=== PATIENT | male | born 1965 | race Two or more races ===

== ENCOUNTER 2017-05-31 22:26 | Emergency (ER) | payer OTHER ==
[~2017-05-31] VITALS: Ht 165.1 cm; Wt 108.9 kg
[2017-05-31 23:47] VITALS: BP 156/94
[2017-06-01 00:18] VITALS: BP 145/90
--- NOTE | 2017-06-01 00:18 | Emergency Room Report ---
History of Present Illness General Chief Complaint: Nosebleed Source: Patient Present Illness HPI 51-year-old male, presenting with right nasal epistaxis, occurred about 20 minutes prior to arrival. States that after he blew his nose which is bleeding. Does not have this happen often. Not any blood thinners. Allergies: Coded Allergies: No Known Allergies (Unverified , 05/31/17) Patient History Past Medical History: see triage record Past Surgical History: none Pertinent Family History: none Reviewed Nursing Documentation: PMH: Agreed, PSxH: Agreed Nursing Documentation-PMH Past Medical History: No Stated History Review of Systems All Other Systems: negative except mentioned in HPI Physical Exam Vital Signs Date Time Temp Pulse Resp B/P (MAP) Pulse Ox O2 Delivery O2 Flow Rate FiO2 05/31/17 22:33 97.6 83 18 156/94 99 Room Air 97.5 Sp02 EP Interpretation: reviewed, normal General Appearance: normal inspection, well appearing, no apparent distress, alert, GCS 15, non-toxic Head: normocephalic, atraumatic Eyes: bilateral eye normal inspection, bilateral eye PERRL, bilateral eye EOMI ENT: other - anterior nasal bleed R nare Neck: normal inspection, full range of motion, supple Respiratory: normal inspection, lungs clear, normal breath sounds, no respiratory distress, no retraction, no wheezing, speaking full sentences, chest symmetrical Cardiovascular #1: normal inspection, regular rate, rhythm, normal capillary refill Cardiovascular #2: 2+ radial (R), 2+ radial (L) Gastrointestinal: normal inspection, non tender, soft, non-distended, no guarding Genitourinary: no CVA tenderness Musculoskeletal: normal inspection, back normal, normal range of motion, non- tender Neurologic: normal inspection, alert, oriented x3, responsive, motor strength/ tone normal, sensory intact, normal gait, speech normal Psychiatric: normal inspection, judgement/insight normal, memory normal Skin: normal inspection, normal color, no rash, warm/dry, well hydrated, normal turgor Medical Decision Making Diagnostic Impression: Primary Impression: Epistaxis ER Course 51-year-old male with right nasal epistaxis DDX: Right anterior epistaxis Plan: Nasal clamp ER course: Patient has remained stable during ED stay. Nasal clamp was placed for about 10 minutes, when taken off there was no further bleeding Disposition: Patient is to be discharged to home. Told to followup with his doctor or ENT Please note that this Emergency Department Report was dictated using [employer] music director technology software, occasionally this can lead to erroneous entry secondary to interpretation by the dictation equipment Last Vital Signs Date Time Temp Pulse Resp B/P (MAP) Pulse Ox O2 Delivery O2 Flow Rate FiO2 05/31/17 23:47 97.5 85 18 156/94 99 Room Air 97.5 Disposition: HOME, SELF-CARE Condition: Improved Referrals: NOT CHOSEN IPA/,REFERRING (PCP) Patient Instructions: Howie Rizv-af-Onbo Doroteo Becerra M.D. Jun 01, 2017 00:18
== END 2017-06-01 00:20 | disposition home or self-care (01) ==
LOC: EMR 22:53
DX: R04.0 Epistaxis (principal)
CPT/HCPCS: 99283

== ENCOUNTER 2017-09-22 19:03 | Inpatient (IN) | payer OTHER ==
[~2017-09-22] VITALS: Ht 165.1 cm; Wt 119.0 kg
[2017-09-22] MEDS ORDERED: Sodium Chloride 500ML 500 ML IV ONE (21:11)
[2017-09-22] MEDS ORDERED: Isovue-300 100ml vial INJ PRN (21:15)
[2017-09-22] MEDS ORDERED: Morphine Sulfate 4mg/ml Inj IVP ONE (21:15)
[2017-09-22] MEDS ORDERED: Ketorolac 30mg Inj IV ONE (21:15)
[2017-09-22] MEDS ORDERED: Ketorolac 30mg Inj ONE (21:50)
[2017-09-22] MEDS ORDERED: Morphine Sulfate 4mg/ml Inj ONE (21:50)
[2017-09-22 21:58] VITALS: BP 105/65
[2017-09-22 22:04] LABS: HEMATOCRIT 46.1 % (42.0-52.0); HEMOGLOBIN 15.4 G/DL (14.2-18.0); MEAN CORPUSCULAR VOLUME 83 FL (80-99); PLATELET COUNT 167 K/UL (150-450); RED BLOOD COUNT 5.55 M/UL (4.70-6.10); RED CELL DISTRIBUTION WIDTH 11.8 % (11.6-14.8); WHITE BLOOD COUNT 13.1 K/UL (4.8-10.8)
[2017-09-22 22:17] LABS: APPEARANCE,URINE CLEAR; BILIRUBIN, URINE NEGATIVE (NEGATIVE); GLUCOSE, URINE (UA) 2+ (NEGATIVE); KETONES,URINE NEGATIVE (NEGATIVE); LEUKOCYTE ESTERASE ,URINE NEGATIVE (NEGATIVE); NITRITE,URINE NEGATIVE (NEGATIVE); PH,URINE 6 (4.5-8.0); PROTEIN,URINE 1+ (NEGATIVE); UROBILINOGEN,URINE NORMAL MG/DL (0.0-1.0)
[2017-09-22 22:22] LABS: ANION GAP 9 mmol/L (5-15); BLOOD UREA NITROGEN 12 mg/dL (7-18); CALCIUM 9.2 MG/DL (8.5-10.1); CARBON DIOXIDE 27 MMOL/L (21-32); CHLORIDE 101 MMOL/L (98-107); CREATININE 1.2 MG/DL (0.55-1.30); POTASSIUM 3.8 MMOL/L (3.5-5.1); SODIUM 137 MMOL/L (136-145)
[2017-09-22 22:26] LABS: ALANINE AMINOTRANSFERASE 43 U/L (12-78); ALBUMIN 3.9 G/DL (3.4-5.0); ALBUMIN/GLOBULIN RATIO 0.9 (1.0-2.7); ALKALINE PHOSPHATASE 80 U/L (46-116); ASPARTATE AMINO TRANSFERASE 17 U/L (15-37); BILIRUBIN,TOTAL 0.7 MG/DL (0.2-1.0)
[2017-09-22 22:41] LABS: COLOR,URINE YELLOW
--- NOTE | 2017-09-22 22:59 | Emergency Room Report ---
History of Present Illness General Chief Complaint: Abdominal Pain Source: Patient Present Illness HPI 51-year-old male presents ED complaining of abdominal pain. Started yesterday. Right sided, 8 out of 10, nonradiating. Denies fevers or chills. Denies chest pain or shortness of breath. Denies nausea or vomiting. Denies any prior episodes of pain. No other aggravating relieving factors. Denies any other associated symptoms Allergies: Coded Allergies: No Known Allergies (Unverified , 05/31/17) Patient History Past Medical History: none Past Surgical History: none Pertinent Family History: none Social History: Denies: smoking, alcohol use, drug use Immunizations: UTD Reviewed Nursing Documentation: PMH: Agreed; PSxH: Agreed Nursing Documentation-PMH Past Medical History: No Stated History Review of Systems All Other Systems: negative except mentioned in HPI Physical Exam Vital Signs Date Time Temp Pulse Resp B/P (MAP) Pulse Ox O2 Delivery O2 Flow Rate FiO2 09/22/17 19:08 98.4 75 22 132/83 95 Room Air 98.4 Sp02 EP Interpretation: reviewed, normal General Appearance: no apparent distress, alert, GCS 15, non-toxic, obese Head: normocephalic Eyes: bilateral eye normal inspection, bilateral eye PERRL ENT: normal ENT inspection Neck: normal inspection Respiratory: normal inspection Cardiovascular #1: normal inspection Gastrointestinal: normal bowel sounds, soft, non-distended, no guarding, no rebound, tenderness - R mid to RLQ pain Rectal: deferred Genitourinary: no CVA tenderness Musculoskeletal: normal inspection Neurologic: alert, oriented x3, responsive, motor strength/tone normal, sensory intact, speech normal Psychiatric: normal inspection Skin: normal inspection Lymphatic: normal inspection Medical Decision Making Diagnostic Impression: Primary Impression: Appendicitis with perforation ER Course Hospital Course 51-year-old M presents to ED with RLQ pain Differential diagnoses include: Appendicitis, cholecystitis, small bowel obstruction Clinical course Patient placed on stretcher. hall monitor. After initial history and physical I ordered labs, IV fluids, UA, pain medication and CT scan Labs - leukocytosis noted, Hb/Hct stable. electrolytes ok. CT abdomen and pelvis - appendicits with perforation Antibiotics given. made NPO. Case discussed with Dr. Weston and he agreed to take the patient to the OR. Case discussed with Dr. Weaver and he agreed to accept the patient to his service for further care and support I feel this is a highly complex case requiring extensive working including EKG/ Rhythm strip, Xray/CT/US, Blood/urine lab work, repeat exams while in ED, and administration of strong opiates/narcotics for pain control, admission to hospital or close patient follow up. Diagnosis - appendicitis with perforation admitted to floor in serious condition Labs Test 09/22/17 21:30 White Blood Count 13.1 K/UL (4.8-10.8) Red Blood Count 5.55 M/UL (4.70-6.10) Hemoglobin 15.4 G/DL (14.2-18.0) Hematocrit 46.1 % (42.0-52.0) Mean Corpuscular Volume 83 FL (80-99) Mean Corpuscular Hemoglobin 27.8 PG (27.0-31.0) Mean Corpuscular Hemoglobin Concent 33.5 G/DL (32.0-36.0) Red Cell Distribution Width 11.8 % (11.6-14.8) Platelet Count 167 K/UL (150-450) Mean Platelet Volume 10.6 FL (6.5-10.1) Neutrophils (%) (Auto) % (45.0-75.0) Lymphocytes (%) (Auto) % (20.0-45.0) Monocytes (%) (Auto) % (1.0-10.0) Eosinophils (%) (Auto) % (0.0-3.0) Basophils (%) (Auto) % (0.0-2.0) Differential Total Cells Counted 100 Neutrophils % (Manual) 86 % (45-75) Lymphocytes % (Manual) 9 % (20-45) Monocytes % (Manual) 5 % (1-10) Eosinophils % (Manual) 0 % (0-3) Basophils % (Manual) 0 % (0-2) Band Neutrophils 0 % (0-8) Platelet Estimate Adequate Platelet Morphology Normal Red Blood Cell Morphology Normal Prothrombin Time 9.7 SEC (9.30-11.50) Prothromb Time International Ratio 0.9 (0.9-1.1) Activated Partial Thromboplast Time 26 SEC (23-33) Urine Color Yellow Urine Appearance Clear Urine pH 6 (4.5-8.0) Urine Specific [place] 1.020 (1.005-1.035) Urine Protein 1+ (NEGATIVE) Urine Glucose (UA) 2+ (NEGATIVE) Urine Ketones Negative (NEGATIVE) Urine Occult Blood 1+ (NEGATIVE) Urine Nitrite Negative (NEGATIVE) Urine Bilirubin Negative (NEGATIVE) Urine Urobilinogen Normal MG/DL (0.0-1.0) Urine Leukocyte Esterase Negative (NEGATIVE) Urine RBC 2-4 /HPF (0 - 0) Urine WBC 0-2 /HPF (0 - 0) Urine Squamous Epithelial Cells None /LPF (NONE/OCC) Urine Bacteria Few /HPF (NONE) Sodium Level 137 MMOL/L (136-145) Potassium Level 3.8 MMOL/L (3.5-5.1) Chloride Level 101 MMOL/L (98-107) Carbon Dioxide Level 27 MMOL/L (21-32) Anion Gap 9 mmol/L (5-15) Blood Urea Nitrogen 12 mg/dL (7-18) Creatinine 1.2 MG/DL (0.55-1.30) Estimat Glomerular Filtration Rate > 60 mL/min (>60) Glucose Level 163 MG/DL (74-106) Calcium Level 9.2 MG/DL (8.5-10.1) Total Bilirubin 0.7 MG/DL (0.2-1.0) Aspartate Amino Transf (AST/SGOT) 17 U/L (15-37) Alanine Aminotransferase (ALT/SGPT) 43 U/L (12-78) Alkaline Phosphatase 80 U/L (46-116) Total Protein 8.1 G/DL (6.4-8.2) Albumin 3.9 G/DL (3.4-5.0) Globulin 4.2 g/dL Albumin/Globulin Ratio 0.9 (1.0-2.7) Lipase 92 U/L (73-393) CT/MRI/US Diagnostic Results CT/MRI/US Diagnostic Results : Imaging Test Ordered: CT A/P Impression appendicitis with perforation Last Vital Signs Date Time Temp Pulse Resp B/P (MAP) Pulse Ox O2 Delivery O2 Flow Rate FiO2 09/22/17 22:22 98.4 09/22/17 21:58 78 18 105/65 96 Room Air Status: improved Disposition: ADMITTED INPATIENT Condition: Serious Scripts No Active Prescriptions or Reported Meds Referrals: NOT CHOSEN IPA/,REFERRING (PCP) Gilson Pepper MD Sep 22, 2017 22:59
[2017-09-23] VITALS (13 sets, daily range): BP systolic 101–144; BP diastolic 59–83
[2017-09-23] MEDS ORDERED: Morphine Sulfate 4mg/ml Inj IVP ONE
--- NOTE | 2017-09-23 00:54 | Diagnostic Imaging Report ---
EXAM: CT Abdomen and Pelvis With Intravenous Contrast CLINICAL HISTORY: ABD PAIN TECHNIQUE: Axial computed tomography images of the abdomen and pelvis with intravenous contrast. CTDI is 19 mGy and DLP is 1193 mGy-cm. One or more of the following dose reduction techniques were used: automated exposure control, adjustment of the mA and/or kV according to patient size, use of iterative reconstruction technique. COMPARISON: No relevant prior studies available. FINDINGS: Lung bases: Bibasilar subsegmental atelectasis. No mass. No consolidation. ABDOMEN: Liver: Unremarkable. No mass. Gallbladder and bile ducts: Unremarkable. No calcified stones. No ductal dilation. Pancreas: Unremarkable. No mass. No ductal dilation. Spleen: Unremarkable. No splenomegaly. Adrenals: Unremarkable. No mass. Kidneys and ureters: Fat density lesion in the right kidney measuring 1.0 x 0.9 cm consistent with benign angiomyolipoma. No hydronephrosis. Stomach and bowel: There is diverticulosis of the colon. No obstruction. No mucosal thickening. PELVIS: Appendix: The appendix is abnormally dilated and inflamed measuring up to 1.2 cm diameter. A small focus of extraluminal air is seen adjacent apex consistent with perforated appendicitis. Bladder: Unremarkable. No mass. Reproductive: Unremarkable as visualized. ABDOMEN and PELVIS: Intraperitoneal space: See above. Bones/joints: There are degenerative changes of the thoracic spine and lumbar spine. No acute fracture. No dislocation. Soft tissues: There are small fat-containing bilateral inguinal hernia defects. Vasculature: Unremarkable. No abdominal aortic aneurysm. Lymph nodes: Unremarkable. No enlarged lymph nodes. Other findings: No abscess identified. IMPRESSION: 1. Findings consistent with perforated appendicitis. 2. No abscess. [employer] 09/23/17 00:55 Call Doctor Regarding Appendicitis, called Dr. Pepper on 09/23 00:55 (-07:00)
[2017-09-23] MEDS ORDERED: Piperacillin/Tazobactam 3.375 GM in NS 110 ML IVPB ONE (01:00)
[2017-09-23 01:33] LABS: INR 0.9 (0.9-1.1)
[2017-09-23] MEDS: Morphine Sulfate 2mg/ml Inj IVP PRN ×2 (03:14→08:23)
[2017-09-23 04:48] LABS: MEAN CORPUSCULAR VOLUME 82 FL (80-99); PLATELET COUNT 147 K/UL (150-450); RED BLOOD COUNT 5.34 M/UL (4.70-6.10); RED CELL DISTRIBUTION WIDTH 11.7 % (11.6-14.8); WHITE BLOOD COUNT 13.1 K/UL (4.8-10.8)
[2017-09-23] MEDS ORDERED: Zosyn 3.375gm q8h **Extended infusion IVPB SCH ×2 (06:00)
[2017-09-23 06:20] LABS: ALANINE AMINOTRANSFERASE 35 U/L (12-78); ALBUMIN 3.6 G/DL (3.4-5.0); ALBUMIN/GLOBULIN RATIO 0.9 (1.0-2.7); ALKALINE PHOSPHATASE 77 U/L (46-116); ANION GAP 12 mmol/L (5-15); ASPARTATE AMINO TRANSFERASE 19 U/L (15-37); BILIRUBIN,TOTAL 1.1 MG/DL (0.2-1.0); BLOOD UREA NITROGEN 15 mg/dL (7-18); CALCIUM 8.4 MG/DL (8.5-10.1); CARBON DIOXIDE 24 MMOL/L (21-32); CHLORIDE 101 MMOL/L (98-107); CREATININE 1.2 MG/DL (0.55-1.30); POTASSIUM 3.5 MMOL/L (3.5-5.1); SODIUM 136 MMOL/L (136-145)
[2017-09-23 06:56] LABS: BILIRUBIN,DIRECT 0.2 MG/DL (0.0-0.3)
[2017-09-23] MEDS ORDERED: Tubing IV Secondary IV ONE (08:58)
[2017-09-23] MEDS ORDERED: NeoSporin Gu Irrig 1ml Amp IRRIG ONE (09:21)
[2017-09-23] MEDS ORDERED: Bupivacaine 0.25% Inj 30ml INJ ONE (09:21)
[2017-09-23] MEDS ORDERED: Bacitracin 50000 Units Vial ONE (09:21)
--- NOTE | 2017-09-23 09:47 | Pre-Procedure Note/Attestation ---
Pre-Procedure Note/Attestation Complete Prior to Procedure Planned Procedure: not applicable Procedure Narrative: Laparoscopic Appendectomy possible open Appendectomy Indications for Procedure Pre-Operative Diagnosis: Acute abdomen Attestation I attest that I discussed the nature of the procedure; its benefits; risks and complications; and alternatives (and the risks and benefits of such alternatives ), prior to the procedure, with the patient (or the patient's legal sales representative girls' apparel). I attest that, if there was a reasonable possibility of needing a blood transfusion, the patient (or the patient's legal sales representative girls' apparel) was given the [facility] standardized written summary, pursuant to the [place] Blood Safety Act ([place] Health and Safety Code # 1645, as amended). I attest that I re-evaluated the patient just prior to the surgery and that there has been no change in the patient's H&P, except as documented below: Harleen Weston MD Sep 23, 2017 09:47
--- NOTE | 2017-09-23 10:00 | Consultation ---
DATE OF CONSULTATION: 09/23/2017 PREOPERATIVE CONSULTATION CONSULTING PHYSICIAN: Harleen Weston M.D. REQUESTING PHYSICIAN: The ER physician. REASON FOR CONSULTATION: Abdominal pain. HISTORY OF PRESENT ILLNESS: This is a 51-year-old male, who presented to emergency room complaining of abdominal pain since the night before last, which was night of the September 21, 2017. The pain is located at the right lower quadrant. He denies nausea, vomiting, cough, fever, dysuria, or frequency. He denies previous history of similar pain. PAST MEDICAL HISTORY: He denies allergies, asthma, diabetes, hypertension, cardiac and renal diseases. PAST SURGICAL HISTORY: He has had some kind of podiatric surgery on the right foot. MEDICATIONS: None. 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 REVIEW OF SYSTEMS: Noncontributory. PHYSICAL EXAMINATION: GENERAL: The patient appeared to be a well-developed, well-nourished, obese 51-year-old male, lying on the bed, complaining of abdominal pain. HEENT: Head is normocephalic and atraumatic. Eyes, pupils are equal, round, and reactive to light. Mouth is clear. NECK: There is no palpable thyromegaly or adenopathy. CHEST: Clear to auscultation and percussion. HEART: There is no gallop or murmur. S1 and S2 are within normal limits. ABDOMEN: Obese and protuberant with tenderness, rebound tenderness, and guarding all over the abdomen, which is more pronounced at the lower abdomen. Bowel sounds are hypoactive. GENITAL: Deferred. EXTREMITIES: Within normal limits. LABORATORY AND DIAGNOSTIC DATA: CBC has shown a WBC of 13,100 with a left shift. Chemistry and UA is normal. CAT scan of the abdomen has been interpreted as acute appendicitis, probably perforated. ASSESSMENT: Acute abdomen. PLAN: After rehydration, the patient will undergo an exploratory laparoscopic appendectomy, possible open appendectomy. The risks and benefits have been explained to him. He understood and granted the consent form. Harleen Weston M.D. DR: ABIMAEL JOB#: [id number] CC:
--- NOTE | 2017-09-23 10:11 | History & Physical ---
History and Physical History & Physicial DICT # [id number] Fly Weaver MD Sep 23, 2017 10:11
[2017-09-23] MEDS ORDERED: Zemuron 50mg/5ml Inj IV ONE ×2 (10:49→11:00)
[2017-09-23] MEDS ORDERED: LR 1000ml ONE (11:00)
[2017-09-23] MEDS ORDERED: Succinylcholine 20mg/ml 10ml vial ONE (11:00)
[2017-09-23] MEDS ORDERED: NS Irrig 1000ml ONE (11:00)
[2017-09-23] MEDS ORDERED: Sterile Water Irrig 1000ml IRRIG ONE (11:00)
[2017-09-23] MEDS ORDERED: Glycopyrrolate 0.2mg/ml 1ml Vial ONE ×2 (11:00→12:29)
[2017-09-23] MEDS ORDERED: fentaNYL 100 mcg/2 mL IV ONE (11:03)
[2017-09-23] MEDS ORDERED: Lidocaine 1% Plain 30 ml INJ ONE (11:06)
[2017-09-23] MEDS ORDERED: Propofol 200mg/20ml IV ONE (11:06)
[2017-09-23] MEDS ORDERED: Metoclopramide 10mg/2ml Inj ONE (11:06)
[2017-09-23] MEDS ORDERED: ePHEDrine 50mg/ml Inj ONE (11:19)
[2017-09-23] MEDS ORDERED: NS Irrig 1000ml IRRIG ONE (11:36)
--- NOTE | 2017-09-23 11:57 | Anethesia Preoperative Eval ---
Anesthesia Pre-op PMH/ROS General Date of Evaluation: Sep 23, 2017 Time of Evaluation: 10:40 Anesthesiologist: camila ASA Score: ASA 2 Mallampati Score Class I : Soft palate, uvula, fauces, pillars visible Class II: Soft palate, uvula, fauces visible Class III: Soft palate, base of uvula visible Class IV: Only hard plate visible Mallampati Classification: Class II Diagnosis: appendicitis Surgical Procedure: Appendetomy open Anesthesia History: none Social History: drug use Family History: no anesthesia problems Allergies: Coded Allergies: No Known Allergies (Unverified , 05/31/17) Medications: see eMAR Past Medical History Cardiovascular: Denies: HTN, CAD, IA, valve dz, arrhythmia, other Pulmonary: Denies: asthma, COPD, SARA, other Gastrointestinal/Genitourinary: Denies: GERD, CRI, ESRD, other Neurologic/Psychiatric: Denies: dementia, CVA, depression/anxiety, TIA, other Endocrine: Denies: DM, hypothyroidism, steroids, other HEENT: Denies: cataract (L), cataract (R), glaucoma, [place] (L), [place] (R), other Hematology/Immune: Denies: anemia, DVT, bleeding disorder, other Musculoskeletal/Integumentary: Denies: OA, RA, DJD, DDD, edema, other Other: obesity PSxH Narrative: denies Anesthesia Pre-op Phys. Exam Physician Exam Last Vital Signs Date Time Temp Pulse Resp B/P (MAP) Pulse Ox O2 Delivery O2 Flow Rate FiO2 09/23/17 08:53 99.3 09/23/17 08:00 90 20 144/70 94 Room Air Constitutional: NAD Neurologic: CN 2-12 intact Cardiovascular: RRR Respiratory: CTA Gastrointestinal: S/NT/ND Airway Exam Mallampati Classification 3 Mallampati Score: Class III MO: limited Neck: thick TMD: 1fb ROM: limited Dentures: no upper, no lower Anesthesia Pre-op A/P Labs Hematology Test 09/22/17 21:30 09/23/17 03:42 White Blood Count 13.1 K/UL (4.8-10.8) H 13.1 K/UL (4.8-10.8) H Red Blood Count 5.55 M/UL (4.70-6.10) 5.34 M/UL (4.70-6.10) Hemoglobin 15.4 G/DL (14.2-18.0) 15.0 G/DL (14.2-18.0) Hematocrit 46.1 % (42.0-52.0) 44.0 % (42.0-52.0) Mean Corpuscular Volume 83 FL (80-99) 82 FL (80-99) Mean Corpuscular Hemoglobin 27.8 PG (27.0-31.0) 28.1 PG (27.0-31.0) Mean Corpuscular Hemoglobin Concent 33.5 G/DL (32.0-36.0) 34.1 G/DL (32.0-36.0) Red Cell Distribution Width 11.8 % (11.6-14.8) 11.7 % (11.6-14.8) Platelet Count 167 K/UL (150-450) 147 K/UL (150-450) L Mean Platelet Volume 10.6 FL (6.5-10.1) H 10.1 FL (6.5-10.1) Neutrophils (%) (Auto) % (45.0-75.0) % (45.0-75.0) Lymphocytes (%) (Auto) % (20.0-45.0) % (20.0-45.0) Monocytes (%) (Auto) % (1.0-10.0) % (1.0-10.0) Eosinophils (%) (Auto) % (0.0-3.0) % (0.0-3.0) Basophils (%) (Auto) % (0.0-2.0) % (0.0-2.0) Differential Total Cells Counted 100 Neutrophils % (Manual) 86 % (45-75) H Pending Lymphocytes % (Manual) 9 % (20-45) L Pending Monocytes % (Manual) 5 % (1-10) Eosinophils % (Manual) 0 % (0-3) Basophils % (Manual) 0 % (0-2) Band Neutrophils 0 % (0-8) Platelet Estimate Adequate Pending Platelet Morphology Normal Pending Red Blood Cell Morphology Normal Coagulation Test 09/22/17 21:30 Prothrombin Time 9.7 SEC (9.30-11.50) Prothromb Time International Ratio 0.9 (0.9-1.1) Activated Partial Thromboplast Time 26 SEC (23-33) Chemistry Test 09/22/17 21:30 09/23/17 03:42 Sodium Level 137 MMOL/L (136-145) 136 MMOL/L (136-145) Potassium Level 3.8 MMOL/L (3.5-5.1) 3.5 MMOL/L (3.5-5.1) Chloride Level 101 MMOL/L (98-107) 101 MMOL/L (98-107) Carbon Dioxide Level 27 MMOL/L (21-32) 24 MMOL/L (21-32) Anion Gap 9 mmol/L (5-15) 12 mmol/L (5-15) Blood Urea Nitrogen 12 mg/dL (7-18) 15 mg/dL (7-18) Creatinine 1.2 MG/DL (0.55-1.30) 1.2 MG/DL (0.55-1.30) Estimat Glomerular Filtration Rate > 60 mL/min (>60) > 60 mL/min (>60) Glucose Level 163 MG/DL (74-106) H 149 MG/DL (74-106) H Calcium Level 9.2 MG/DL (8.5-10.1) 8.4 MG/DL (8.5-10.1) L Total Bilirubin 0.7 MG/DL (0.2-1.0) 1.1 MG/DL (0.2-1.0) H Aspartate Amino Transf (AST/SGOT) 17 U/L (15-37) 19 U/L (15-37) Alanine Aminotransferase (ALT/SGPT) 43 U/L (12-78) 35 U/L (12-78) Alkaline Phosphatase 80 U/L (46-116) 77 U/L (46-116) Total Protein 8.1 G/DL (6.4-8.2) 7.6 G/DL (6.4-8.2) Albumin 3.9 G/DL (3.4-5.0) 3.6 G/DL (3.4-5.0) Globulin 4.2 g/dL 4.0 g/dL Albumin/Globulin Ratio 0.9 (1.0-2.7) L 0.9 (1.0-2.7) L Lipase 92 U/L (73-393) Hemoglobin A1c 6.2 % (4.3-6.0) H Direct Bilirubin 0.2 MG/DL (0.0-0.3) Studies Pre-op Studies: EKG - sr Risk Assessment & Plan Assessment: denies recent changes in health Plan: general Status Change Before Surgery: No Pre-Antibiotics Drug: zosyn Given Within 1 Hr of Incision: Yes Time Given: 10:40 Shazia Yang PHYSICAL TESTING SUPERVISOR Sep 23, 2017 11:57
[2017-09-23] MEDS ORDERED: Metoclopramide 10mg/2ml Inj IVP PRN (12:00)
[2017-09-23] MEDS ORDERED: Ketorolac 30mg Inj IV PRN (12:00)
[2017-09-23] MEDS ORDERED: fentaNYL 100 mcg/2 mL IV PRN (12:00)
[2017-09-23] MEDS ORDERED: Ketorolac 30mg Inj ONE (12:29)
[2017-09-23] MEDS ORDERED: Neostigmine 1mg/ml 10ml Inj ONE (12:29)
--- NOTE | 2017-09-23 12:37 | Brief Operative Note ---
Immediate Post Operative Note Operative Note Pre-op Diagnosis: Acute abdomen Procedure: attempted Lap Appy , open appendectomy Post-op Diagnosis: perforated appendicitis with peritonitis Surgeon: MD Arnaldo Shuttle Fitting Supervisor: none Anesthesiologist: Dr. Yang Anesthesia: general Specimen: yes Complications: none Condition: stable Fluids: per anesthesiologist Estimated Blood Loss: volume - 20 ml Drains: none Implant(s) used?: No Harleen Weston MD Sep 23, 2017 12:37
[2017-09-23] MEDS ORDERED: Acetaminophen 650 MG SUPP RECTAL PRN (12:45)
[2017-09-23] MEDS ORDERED: Gentamicin Rx monitoring MISC PRN (12:45)
--- NOTE | 2017-09-23 12:56 | Immediate Post-Op Evaluation ---
Immediate Post-Op Evalulation Immediate Post-Op Evalulation Procedure: appendectomy open Date of Evaluation: Sep 23, 2017 Time of Evaluation: 12:46 IV Fluids: 1300 Blood Pressure Systolic: 134 Blood Pressure Diastolic: 70 Pulse Rate: 96 Respiratory Rate: 14 O2 Sat by Pulse Oximetry: 100 Temperature (Fahrenheit): 99.4 Nausea: No Vomiting: No Complications none Patient Status: awake, reacts, patent Hydration Status: adequate Drug: zosyn Given Within 1 Hr of Incision: Yes Time Given: 10:40 Shazia Yang CRNA Sep 23, 2017 12:56
--- NOTE | 2017-09-23 15:30 | History and Physical Report ---
DATE OF ADMISSION: 09/23/2017 REASON FOR ADMISSION: Abdominal pain. HISTORY OF PRESENT ILLNESS: The patient is a 51-year-old obese male without any significant past medical history, who presented to the ER with acute right lower quadrant pain x1 night. No nausea or vomiting. No fever or chills. No headache or dizziness. He is unable to eat secondary to food aversion. No diarrhea or constipation. CT in the ER showed acute perforated appendicitis. The patient has been admitted for definitive management. PAST MEDICAL HISTORY: None. PAST SURGICAL HISTORY: None. ALLERGIES: No known drug allergies. MEDICATIONS: Prior to admission, medications none. SOCIAL HISTORY: He is with two children. 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 No tobacco, alcohol, or drug use. FAMILY HISTORY: Noncontributory. REVIEW OF SYSTEMS: Negative other than history of present illness. PHYSICAL EXAMINATION: VITAL SIGNS: Temperature 100.1, pulse 95, blood pressure 127/75, and saturating 100% on room air. GENERAL: He is a well-developed, well-nourished male, in no acute distress. Awake, alert, and oriented x3. HEENT: Normocephalic and atraumatic. Oropharynx is clear with moist mucous membranes. NECK: Supple without lymphadenopathy or JVD. CHEST: Clear. ABDOMEN: Diffuse tenderness with rebound. Hypoactive bowel sounds. EXTREMITIES: No cyanosis, clubbing, or edema. ANCILLARY DATA: White count 13.1, hemoglobin 15, and platelet count 147. INR 0.9. Sodium 137, potassium 3.8, chloride 101, bicarb 27, BUN 12, creatinine 1.2, glucose 163, and calcium 9.2. Total bilirubin 0.7. 17, 43, and alkaline phosphatase 80. Total protein 8. Albumin 3.9. Globulin 4.2. Urinalysis 1+ protein, 2+ glucose, 1+ blood. Imaging, CT of the abdomen and pelvis done in the emergency department shows perforated appendicitis. ASSESSMENT: The patient is a 51-year-old male with a history of obesity, presenting with acute right lower quadrant pain and an acute abdomen secondary to acute perforated appendicitis. He has been admitted for IV fluids, antibiotics, pain control, and is being taken to the OR this morning for laparoscopic appendectomy. 1. Acute perforated appendicitis. 2. Acute abdomen secondary to above. 3. Obesity. 4. Likely sleep apnea. 5. Elevated blood sugar, possibly diabetes. TREATMENT PLAN: 1. The patient is on-call to the OR for laparoscopic appendectomy. 2. Supportive care. 3. Incentive spirometry. 4. IV fluids. 5. Broad-spectrum antibiotics. 6. We will advance diet postop per surgical recommendations. 7. We will follow surgery postop recommendations. 8. DVT prophylaxis. 9. The patient is Full Code. Fly Weaver M.D. DR: REAL JOB#: [id number] CC:
[2017-09-23] MEDS: D5 1/2NS w/KCl 20mEq 1,000 ML IV SCH ×2 (15:31→23:30)
[2017-09-23] MEDS ORDERED: NS IVPB SCH ×2 (18:00)
[2017-09-23] MEDS ORDERED: GENTAMICIN IVPB SCH ×2 (18:00)
--- NOTE | 2017-09-23 18:45 | Operative Note - Dictated ---
DATE OF OPERATION: 09/23/2017 PREOPERATIVE DIAGNOSIS: Acute abdomen. POSTOPERATIVE DIAGNOSIS: Acute perforated appendicitis with peritonitis. OPERATION: 1. Attempted laparoscopic appendectomy. 2. Open appendectomy. COMPLICATIONS: None. SURGEON: Harleen Weston M.D. VISUAL C DEVELOPER: None. ANESTHESIA: General with endotracheal tube. ANESTHESIOLOGIST: Shazia Yang. INDICATION: This is a 51-year-old, male, who presented to emergency room complaining of abdominal pain since 09/21/2017. He states that the pain was located at right lower quadrant. No nausea or vomiting. Physical examination showed tenderness, rebound tenderness, and guarding all over the abdomen, which was more pronounced at the lower abdomen. The CBC showed a WBC of 13,700 with a left shift. CAT scan of the abdomen was interpreted as perforated appendicitis. DESCRIPTION OF PROCEDURE: The patient was placed supine on the operating table and after general anesthesia with endotracheal tube, the abdomen was properly prepped and draped. Initially, a small incision was given above the umbilicus, through which a Veress needle was introduced into the intraperitoneal cavity. This cavity was insufflated up to 17 mmHg and then the Veress needle was removed and a 5 mm trocar was placed in the intraperitoneal cavity through the incision above the umbilicus. Laparoscope and camera were introduced into the intraperitoneal cavity through the trocar above the umbilicus, and under direct vision, a 5 mm trocar was placed at the suprapubic area and a 12 mm trocar was placed at the left lower quadrant of the abdomen. Initially, a rapid exploration was performed, which was very difficult. It should be noted that the patient is very obese and he had large amount of fat in the abdomen and space was not clear considerable amount, but anyway we managed to perform the exploration. The diaphragms were normal. The part of the stomach that could be seen was normal. Liver showed fatty infiltrate. The bowels were covered with omentum. The patient had brownish fluid in the lower abdomen, especially in the pelvis and the right lower quadrant. This fluid was aspirated. Exploration of the right lower quadrant cavity was performed. It was noticed that the patient had extensive inflammatory changes in this area. During the dissection, a tissue was identified, which seemed to be inflamed appendix. While we were trying to dissect, this part avulsed. So, it was removed from the intraperitoneal cavity through the incision on the left lower quadrant. Further exploration was performed. I felt like we could see the appendix, but it was too much inflammatory reaction and beside I was not sure, further dissection could have been very dangerous. So, the decision was made to perform open appendectomy. The trocars were removed. A transverse incision was given in the right lower quadrant of the abdomen and it was carried sharply through the large amount of fat. The fascia and the muscles were split. The intraperitoneal cavity was entered. This incision was later extended laterally. Finally, the cecum was identified. Exploration of the area was performed and the appendix was identified and gradually then dissected and isolated. The mesoappendix was not clear. It seemed that it was removed during the laparoscopy, but anyway, the appendix was identified. The proximal part was normal and the distal part was severely inflamed and amputated. A TA 30 was applied at the base and the appendix was removed. After that, the intraperitoneal cavity was thoroughly irrigated with antibiotic solution. Another exploration was performed. There was no bleeding or complication. The incision was approximated with running 0 Vicryl for posterior fascia and peritoneum, few interrupted sutures of 0 Vicryl for the muscle, and then running 0 Vicryl for the fascia. The incision was then irrigated with antibiotic solution and Betadine, and the subcutaneous tissue was approximated with 4-0 chromic and the skin incisions were approximated with multiple skin nitza. The patient tolerated the procedure very well and was transferred to recovery room in stable condition and extubated. The sponge and needle count correct. Estimated blood loss 20 mL. Condition of the patient at the end of procedure was stable. Harleen Weston M.D. DR: LUCIANO JOB#: [id number] CC:
[2017-09-23] MEDS: Piperacillin/Tazobactam 4.5 GM in NS 110 ML IVPB SCH (20:27)
[2017-09-23] MEDS: Morphine Sulfate 4mg/ml Inj IVP PRN (20:28)
[2017-09-23] MEDS: Metoclopramide 10mg/2ml Inj IM SCH (21:24)
[2017-09-24] VITALS: BP 99/63
[2017-09-24] MEDS: D5 1/2NS w/KCl 20mEq 1,000 ML IV SCH ×2 (02:07→15:20)
[2017-09-24] MEDS: Morphine Sulfate 4mg/ml Inj IVP PRN ×3 (02:08→15:20)
[2017-09-24 04:00] VITALS: BP 92/68
[2017-09-24] MEDS: Piperacillin/Tazobactam 4.5 GM in NS 110 ML IVPB SCH (04:31)
[2017-09-24 06:30] LABS: HEMATOCRIT 37.9 % (42.0-52.0); HEMOGLOBIN 12.6 G/DL (14.2-18.0); MEAN CORPUSCULAR VOLUME 84 FL (80-99); PLATELET COUNT 109 K/UL (150-450); RED BLOOD COUNT 4.52 M/UL (4.70-6.10); RED CELL DISTRIBUTION WIDTH 11.9 % (11.6-14.8); WHITE BLOOD COUNT 11.5 K/UL (4.8-10.8)
[2017-09-24] MEDS: Metoclopramide 10mg/2ml Inj IM SCH ×3 (06:31→22:00)
[2017-09-24 06:38] LABS: ANION GAP 6 mmol/L (5-15); BLOOD UREA NITROGEN 19 mg/dL (7-18); CALCIUM 7.9 MG/DL (8.5-10.1); CARBON DIOXIDE 29 MMOL/L (21-32); CHLORIDE 104 MMOL/L (98-107); CREATININE 1.3 MG/DL (0.55-1.30); POTASSIUM 3.8 MMOL/L (3.5-5.1); SODIUM 139 MMOL/L (136-145)
[2017-09-24 08:00] VITALS: BP 103/70
[2017-09-24] MEDS: Pantoprazole Inj IVP SCH (08:18)
[2017-09-24] MEDS: Enoxaparin 40mg Inj SUBQ SCH (08:40)
--- NOTE | 2017-09-24 08:43 | General Progress Note ---
Assessment/Plan Problem List: (1) Appendicitis with perforation Assessment & Plan: S/P lap turned open appy 09/23 ICD Codes: K35.2 - Acute appendicitis with generalized peritonitis SNOMED: 79704748 (2) Obesity ICD Codes: E66.9 - Obesity, unspecified SNOMED: 032161209, [id number] Status: doing well Assessment/Plan -Post op care -Pain control/supportive care -NPO, advance diet per surgery -Monitor for recovery of bowel function -IS -Gent started by surgery, D/C Zosyn, ID eval, F/U Cx's -DVT Px -Weight loss, diet and exercise discussed -Should have an an outpatient sleep study Subjective Allergies: Coded Allergies: No Known Allergies (Unverified , 05/31/17) Subjective POD 1 S/P lap turned open skylar AFVSS, stable O2 needs Pain well controlled, + N no V, no flatus, no BM, no F/C Not using IS Objective Last 24 Hour Vital Signs Date Time Temp Pulse Resp B/P (MAP) Pulse Ox O2 Delivery O2 Flow Rate FiO2 09/24/17 08:00 98.1 87 18 103/70 94 Nasal Cannula 2.0 98.1 09/24/17 04:00 97.9 85 18 92/68 96 Nasal Cannula 2.0 97.9 09/24/17 00:00 98.1 84 20 99/63 95 Nasal Cannula 2.0 98.1 09/23/17 20:00 98.3 89 19 108/73 98 Nasal Cannula 2.0 98.3 09/23/17 16:00 98.5 74 18 101/72 93 Nasal Cannula 2.0 98.5 09/23/17 13:41 98.2 77 16 108/72 97 Nasal Cannula 3 98.2 09/23/17 13:30 69 15 115/74 96 Nasal Cannula 3 09/23/17 13:15 72 14 109/69 97 Nasal Cannula 3 09/23/17 13:00 87 16 116/70 99 Simple Mask 6 09/23/17 12:56 210.9 96 14 100 09/23/17 12:50 85 15 134/75 99 Simple Mask 6 09/23/17 12:40 99.6 96 14 136/83 99 Simple Mask 6 99.6 09/23/17 08:53 99.3 Intake and Output 09/23/17 09/24/17 19:00 07:00 Intake Total 400 ml 1015.0 ml Output Total 600 ml 400 ml Balance -200 ml 615.0 ml Intake Oral 0 ml IV Total 400 ml 1015.0 ml Output Urine Total 600 ml 400 ml # Voids 1 Laboratory Tests 09/24/17 06:00: White Blood Count 11.5H, Red Blood Count 4.52L, Hemoglobin 12.6L, Hematocrit 37.9L, Mean Corpuscular Volume 84, Mean Corpuscular Hemoglobin 27.9, Mean Corpuscular Hemoglobin Concent 33.3, Red Cell Distribution Width 11.9, Platelet Count 109L, Mean Platelet Volume 10.3H, Neutrophils (%) (Auto) , Lymphocytes (% ) (Auto) , Monocytes (%) (Auto) , Eosinophils (%) (Auto) , Basophils (%) (Auto) , Differential Total Cells Counted 100, Neutrophils % (Manual) 90H, Lymphocytes % (Manual) 9L, Monocytes % (Manual) 1, Eosinophils % (Manual) 0, Basophils % ( Manual) 0, Band Neutrophils 0, Platelet Estimate DecreasedL, Platelet Morphology Normal, Red Blood Cell Morphology Normal, Sodium Level 139, Potassium Level 3.8, Chloride Level 104, Carbon Dioxide Level 29, Anion Gap 6, Blood Urea Nitrogen 19H, Creatinine 1.3, Estimat Glomerular Filtration Rate 58.7 , Glucose Level 147H, Calcium Level 7.9L, Random Gentamicin Level 0.9 Height (Feet): 5 Height (Inches): 5.00 Weight (Pounds): 260 General Appearance: WD/WN, no apparent distress, alert, obese EENT: PERRL/EOMI, normal ENT inspection Neck: non-tender, normal alignment, supple Cardiovascular: normal peripheral pulses, normal rate, regular rhythm Respiratory/Chest: chest wall non-tender, lungs clear, normal breath sounds Abdomen: soft, no organomegaly, no mass, hypoactive bowel sounds, tender - mild diffuse Edema: no edema noted Arm (L), no edema noted Arm (R), no edema noted Leg (L), no edema noted Leg (R), no edema noted Pedal (L), no edema noted Pedal (R), no edema noted Generalized Fly Weaver MD Sep 24, 2017 08:43
[2017-09-24] MEDS: Piperacillin/Tazobactam 3.375 GM in D5W 110 ML IVPB SCH ×2 (12:42→20:05)
--- NOTE | 2017-09-24 12:57 | 48 Hour Post Anesthesia Eval ---
Post Anesthesia Evaluation Procedure: appendectomy open Date of Evaluation: Sep 24, 2017 Time of Evaluation: 12:56 Blood Pressure Systolic: 108 0: 56 Pulse Rate: 72 Respiratory Rate: 20 Temperature (Fahrenheit): 97.6 O2 Sat by Pulse Oximetry: 98 Airway: patent Nausea: No Vomiting: No Pain Intensity: 2 Hydration Status: adequate Cardiopulmonary Status: stable Mental Status/LOC: patient returned to baseline Follow-up Care/Observations: n/a Post-Anesthesia Complications: none Follow-up care needed: N/A Ryan Sanchez MD Sep 24, 2017 12:57
--- NOTE | 2017-09-24 14:00 | General Surgery Progress Note ---
General Surgery-Progress Note Subjective Procedure Performed attempted Lap Appy , open appendectomy Symptoms: improved Objective Last 24 Hour Vital Signs Date Time Temp Pulse Resp B/P (MAP) Pulse Ox O2 Delivery O2 Flow Rate FiO2 09/24/17 12:57 207.7 72 20 98 09/24/17 08:00 98.1 87 18 103/70 94 Nasal Cannula 2.0 98.1 09/24/17 04:00 97.9 85 18 92/68 96 Nasal Cannula 2.0 97.9 09/24/17 00:00 98.1 84 20 99/63 95 Nasal Cannula 2.0 98.1 09/23/17 20:00 98.3 89 19 108/73 98 Nasal Cannula 2.0 98.3 09/23/17 16:00 98.5 74 18 101/72 93 Nasal Cannula 2.0 98.5 I&O Intake and Output 09/23/17 09/24/17 19:00 07:00 Intake Total 400 ml 1015.0 ml Output Total 600 ml 400 ml Balance -200 ml 615.0 ml Intake Oral 0 ml IV Total 400 ml 1015.0 ml Output Urine Total 600 ml 400 ml # Voids 1 Dressing: dry Drains: none Respiratory: clear Abdomen: soft, non-tender, absent bowel sounds Extremities: no edema, no tenderness Laboratory Tests Test 09/24/17 06:00 White Blood Count 11.5 K/UL (4.8-10.8) H Red Blood Count 4.52 M/UL (4.70-6.10) L Hemoglobin 12.6 G/DL (14.2-18.0) L Hematocrit 37.9 % (42.0-52.0) L Mean Corpuscular Volume 84 FL (80-99) Mean Corpuscular Hemoglobin 27.9 PG (27.0-31.0) Mean Corpuscular Hemoglobin Concent 33.3 G/DL (32.0-36.0) Red Cell Distribution Width 11.9 % (11.6-14.8) Platelet Count 109 K/UL (150-450) L Mean Platelet Volume 10.3 FL (6.5-10.1) H Neutrophils (%) (Auto) % (45.0-75.0) Lymphocytes (%) (Auto) % (20.0-45.0) Monocytes (%) (Auto) % (1.0-10.0) Eosinophils (%) (Auto) % (0.0-3.0) Basophils (%) (Auto) % (0.0-2.0) Differential Total Cells Counted 100 Neutrophils % (Manual) 90 % (45-75) H Lymphocytes % (Manual) 9 % (20-45) L Monocytes % (Manual) 1 % (1-10) Eosinophils % (Manual) 0 % (0-3) Basophils % (Manual) 0 % (0-2) Band Neutrophils 0 % (0-8) Platelet Estimate Decreased L Platelet Morphology Normal Red Blood Cell Morphology Normal Sodium Level 139 MMOL/L (136-145) Potassium Level 3.8 MMOL/L (3.5-5.1) Chloride Level 104 MMOL/L (98-107) Carbon Dioxide Level 29 MMOL/L (21-32) Anion Gap 6 mmol/L (5-15) Blood Urea Nitrogen 19 mg/dL (7-18) H Creatinine 1.3 MG/DL (0.55-1.30) Estimat Glomerular Filtration Rate 58.7 mL/min (>60) Glucose Level 147 MG/DL (74-106) H Calcium Level 7.9 MG/DL (8.5-10.1) L Random Gentamicin Level 0.9 ug/mL Assessment Post-op Diagnosis perforated appendicitis with peritonitis Plan Additional Comments continue current treatment Harleen Weston MD Sep 24, 2017 14:00
[2017-09-24 16:00] VITALS: BP 97/58
--- NOTE | 2017-09-24 16:02 | Infectious Diseases Prog Note ---
Assessment/Plan Assessment/Plan Full consult dictated: A) 1) appendicitis, sepsis, leukocytosis, fevers 2) pmh noted 3) allergies - negative P) 1) zoysn, discontinue gentamicin 2) monitor labs 3) thank you Subjective Allergies: Coded Allergies: No Known Allergies (Unverified , 05/31/17) Objective Vital Signs Last 24 Hour Vital Signs Date Time Temp Pulse Resp B/P (MAP) Pulse Ox O2 Delivery O2 Flow Rate FiO2 09/24/17 15:20 97.6 09/24/17 12:57 207.7 72 20 98 09/24/17 08:00 98.1 87 18 103/70 94 Nasal Cannula 2.0 98.1 09/24/17 04:00 97.9 85 18 92/68 96 Nasal Cannula 2.0 97.9 09/24/17 00:00 98.1 84 20 99/63 95 Nasal Cannula 2.0 98.1 09/23/17 20:00 98.3 89 19 108/73 98 Nasal Cannula 2.0 98.3 09/23/17 16:00 98.5 74 18 101/72 93 Nasal Cannula 2.0 98.5 Height (Feet): 5 Height (Inches): 5.00 Weight (Pounds): 260 Laboratory Tests Test 09/24/17 06:00 White Blood Count 11.5 K/UL (4.8-10.8) H Red Blood Count 4.52 M/UL (4.70-6.10) L Hemoglobin 12.6 G/DL (14.2-18.0) L Hematocrit 37.9 % (42.0-52.0) L Mean Corpuscular Volume 84 FL (80-99) Mean Corpuscular Hemoglobin 27.9 PG (27.0-31.0) Mean Corpuscular Hemoglobin Concent 33.3 G/DL (32.0-36.0) Red Cell Distribution Width 11.9 % (11.6-14.8) Platelet Count 109 K/UL (150-450) L Mean Platelet Volume 10.3 FL (6.5-10.1) H Neutrophils (%) (Auto) % (45.0-75.0) Lymphocytes (%) (Auto) % (20.0-45.0) Monocytes (%) (Auto) % (1.0-10.0) Eosinophils (%) (Auto) % (0.0-3.0) Basophils (%) (Auto) % (0.0-2.0) Differential Total Cells Counted 100 Neutrophils % (Manual) 90 % (45-75) H Lymphocytes % (Manual) 9 % (20-45) L Monocytes % (Manual) 1 % (1-10) Eosinophils % (Manual) 0 % (0-3) Basophils % (Manual) 0 % (0-2) Band Neutrophils 0 % (0-8) Platelet Estimate Decreased L Platelet Morphology Normal Red Blood Cell Morphology Normal Sodium Level 139 MMOL/L (136-145) Potassium Level 3.8 MMOL/L (3.5-5.1) Chloride Level 104 MMOL/L (98-107) Carbon Dioxide Level 29 MMOL/L (21-32) Anion Gap 6 mmol/L (5-15) Blood Urea Nitrogen 19 mg/dL (7-18) H Creatinine 1.3 MG/DL (0.55-1.30) Estimat Glomerular Filtration Rate 58.7 mL/min (>60) Glucose Level 147 MG/DL (74-106) H Calcium Level 7.9 MG/DL (8.5-10.1) L Random Gentamicin Level 0.9 ug/mL Current Medications Medications (Trade) Dose Ordered Sig/Fabiano Route PRN Reason Start Time Stop Time Status Last Admin Dose Admin Acetaminophen (Tylenol) 650 mg Q4H PRN RECTAL Mild Pain (Pain Scale 1-3) 09/23/17 12:45 10/23/17 12:44 Dextrose/ Electrolytes 1,000 ml @ 125 mls/hr Q8H IV 09/23/17 15:30 10/23/17 15:29 09/24/17 15:20 Enoxaparin Sodium (Lovenox) 40 mg DAILY SUBQ 09/24/17 09:00 10/24/17 08:59 09/24/17 08:40 Gentamicin Protocol (Gentamicin pharmacy to dose) 1 ea DAILY PRN MISC Per rx protocol 09/23/17 12:45 10/23/17 12:44 Gentamicin Sulfate 400 mg/ Sodium Chloride 285 ml @ 285 mls/hr Q24H IVPB 09/23/17 18:00 09/30/17 17:59 09/23/17 18:40 Iopamidol (Isovue-300 100ml) 100 ml NOW PRN INJ Radiology Procedure 09/22/17 21:15 Metoclopramide HCl (Reglan) 10 mg EVERY 8 HOURS IM 09/23/17 22:00 10/23/17 21:59 09/24/17 06:31 Morphine Sulfate (Morphine Sulfate) 4 mg Q4H PRN IVP For Pain 09/23/17 12:45 09/30/17 12:44 09/24/17 15:20 Ondansetron HCl (Zofran) 4 mg Q6H PRN IVP Nausea & Vomiting 09/23/17 02:30 10/23/17 02:29 Pantoprazole (Protonix) 40 mg DAILY IVP 09/24/17 09:00 10/24/17 08:59 09/24/17 08:18 Piperacillin Sod/ Tazobactam Sod 3.375 gm/Dextrose 110 ml @ 27.5 mls/hr Q8H IVPB 09/24/17 12:00 10/01/17 11:59 09/24/17 12:42 Con Ding MD Sep 24, 2017 16:02
--- NOTE | 2017-09-24 17:45 | Consultation ---
DATE OF CONSULTATION: 09/24/2017 INFECTIOUS DISEASE CONSULTATION CONSULTING PHYSICIAN: Con Ding M.D. REFERRING PHYSICIAN: Fly Weaevr M.D. REASON FOR CONSULTATION: Appendicitis, peritonitis, sepsis, leukocytosis, and fevers. CHIEF COMPLAINT: The patient's chief complaint coming in to the hospital is abdominal pain and appendicitis. HISTORY OF PRESENT ILLNESS: This is a 51-year-old male, who comes in to [facility] with abdominal pain. A CT scan of the abdomen and pelvis was consistent with perforated appendicitis. The patient was taken to surgery yesterday and status post appendectomy. Upon reviewing the operative report, the patient had perforation and also had peritonitis and required an open appendectomy. Infectious Disease consultation is requested. The patient currently is on Zosyn and gentamicin and I will discontinue the gentamicin and continue Zosyn for now. The patient was seen postoperatively. MAR was noted. Orders were noted. I discussed the case with RN, the patient, and the patient's family. PAST MEDICAL HISTORY: The patient has no other significant past medical history. No history of diabetes or hypertension. ALLERGIES: No known drug allergies. SOCIAL HISTORY: Negative for smoking, alcohol, or drug abuse. FAMILY HISTORY: Noncontributory. REVIEW OF SYSTEMS: CONSTITUTIONAL: He has no focal weakness. He did come in with fevers. HEAD AND NECK: No head pain or neck pain. No neck stiffness. CARDIAC: No chest pain. GASTROINTESTINAL: He came with abdominal pain, which has improved. This is controlled at this time. No diarrhea. PULMONARY: No congestion or shortness of breath. SKIN: No rash or itching. EXTREMITIES: No extremity pain. NEUROLOGIC: No seizures. PHYSICAL EXAM: VITAL SIGNS: Temperature currently is 97.6, pulse rate is 72, respiratory rate 20, saturation 98%, and blood pressure is 103/70. GENERAL: Alert and responsive, no acute distress. HEAD AND NECK: Supple. No JVD. Normocephalic. No icterus or thrush. LUNGS: Clear bilaterally. No rhonchi or rales. HEART: No gallop or murmur. ABDOMEN: Soft. Positive bowel sounds. May be some discomfort, but no rebound. SKIN: No rash. MUSCULOSKELETAL: No effusions. Legs are without cellulitis. PERIPHERAL VASCULAR: No cyanosis. GENITOURINARY: He has no Gomez. NEUROLOGIC: Intact. LINES: Line sites without phlebitis. LABORATORY DATA: Laboratory data is as follows, white count 11.5 and hemoglobin 12.6. On admission, white count 13.1. Creatinine is 1.3. UA was 0 to [address] scan of the abdomen and pelvis again was suggestive of appendicitis with perforation. ASSESSMENT AND PLAN: 1. The patient has acute appendicitis with perforation peritonitis. The patient has possible sepsis, leukocytosis, fevers, and systemic inflammatory response syndrome criteria. Continue Zosyn and discontinue gentamicin. Watch the patient clinically. Surgery follow up. We will monitor laboratories, watch creatinine, and watch white cell count. 2. No other past medical history. 3. No known allergy. 4. Social history is negative. 5. MAR was noted. 6. Case was discussed with RN. 7. Continue treatment per primary consultants. 8. Family history is noncontributory. 9. Orders were noted and notes were reviewed. Con Ding M.D. DR: CHAD JOB#: [id number] CC:
[2017-09-24 20:00] VITALS: BP 116/72
[2017-09-25] VITALS: BP 109/68
[2017-09-25] MEDS: Morphine Sulfate 4mg/ml Inj IVP PRN ×2 (00:18→07:46)
[2017-09-25] MEDS: D5 1/2NS w/KCl 20mEq 1,000 ML IV SCH ×2 (02:17→06:44)
[2017-09-25] MEDS: Piperacillin/Tazobactam 3.375 GM in D5W 110 ML IVPB SCH ×3 (04:10→20:35)
[2017-09-25] MEDS: Metoclopramide 10mg/2ml Inj IM SCH ×3 (05:34→21:36)
[2017-09-25 06:00] VITALS: BP 97/67
[2017-09-25 06:49] LABS: BASOPHILS % (AUTO) 0.6 % (0.0-2.0); EOSINOPHILS % (AUTO) 0.7 % (0.0-3.0); HEMATOCRIT 36.6 % (42.0-52.0); MEAN CORPUSCULAR VOLUME 84 FL (80-99); MONOCYTES % (AUTO) 4.7 % (1.0-10.0); PLATELET COUNT 134 K/UL (150-450); RED BLOOD COUNT 4.35 M/UL (4.70-6.10); RED CELL DISTRIBUTION WIDTH 12.3 % (11.6-14.8); WHITE BLOOD COUNT 9.7 K/UL (4.8-10.8)
[2017-09-25 07:11] LABS: ANION GAP 3 mmol/L (5-15); BLOOD UREA NITROGEN 14 mg/dL (7-18); CALCIUM 8.1 MG/DL (8.5-10.1); CARBON DIOXIDE 30 MMOL/L (21-32); CHLORIDE 104 MMOL/L (98-107); CREATININE 1.1 MG/DL (0.55-1.30); POTASSIUM 3.9 MMOL/L (3.5-5.1); SODIUM 137 MMOL/L (136-145)
[2017-09-25 08:18] VITALS: BP 102/71
--- NOTE | 2017-09-25 08:41 | General Progress Note ---
Assessment/Plan Problem List: (1) Appendicitis with perforation Assessment & Plan: S/P lap turned open appy 09/23 ICD Codes: K35.2 - Acute appendicitis with generalized peritonitis SNOMED: [id number] (2) Obesity ICD Codes: E66.9 - Obesity, unspecified SNOMED: 468083415, [id number] Assessment/Plan -Post op care -Pain control/supportive care -NPO, advance diet per surgery -Monitor for recovery of bowel function -IS -Zosyn per ID, FU Cx's -DVT Px: LMWH -Weight loss, diet and exercise discussed -Should have an an outpatient sleep study Subjective Allergies: Coded Allergies: No Known Allergies (Unverified , 05/31/17) Subjective POD 2 S/P lap turned open skylar AFVSS, stable O2 needs Pain well controlled, no N no V, + flatus, no BM, no F/C Not using IS Objective Last 24 Hour Vital Signs Date Time Temp Pulse Resp B/P (MAP) Pulse Ox O2 Delivery O2 Flow Rate FiO2 09/25/17 08:18 98.4 75 19 102/71 93 Nasal Cannula 2.0 98.4 09/25/17 06:00 98.9 75 19 97/67 99 Nasal Cannula 2.0 98.9 09/25/17 00:00 99.1 66 20 109/68 98 Nasal Cannula 2.0 99.1 09/24/17 20:00 97.4 98 18 116/72 96 Room Air 97.4 09/24/17 16:00 98.4 88 19 97/58 97 Room Air 98.4 09/24/17 15:50 98.4 09/24/17 15:20 97.6 09/24/17 12:57 207.7 72 20 98 Intake and Output 09/24/17 09/25/17 19:00 07:00 Intake Total 1012.5 ml 1415.0 ml Output Total 800 ml Balance 212.5 ml 1415.0 ml IV Total 1012.5 ml 1415.0 ml Output Urine Total 800 ml # Voids 3 Laboratory Tests 09/25/17 05:35: White Blood Count 9.7, Red Blood Count 4.35L, Hemoglobin 12.0L, Hematocrit 36.6L , Mean Corpuscular Volume 84, Mean Corpuscular Hemoglobin 27.6, Mean Corpuscular Hemoglobin Concent 32.7, Red Cell Distribution Width 12.3, Platelet Count 134L, Mean Platelet Volume 10.6H, Neutrophils (%) (Auto) 82.0H, Lymphocytes (%) (Auto) 12.0L, Monocytes (%) (Auto) 4.7, Eosinophils (%) (Auto) 0.7, Basophils (%) (Auto) 0.6, Sodium Level 137, Potassium Level 3.9, Chloride Level 104, Carbon Dioxide Level 30, Anion Gap 3L, Blood Urea Nitrogen 14, Creatinine 1.1, Estimat Glomerular Filtration Rate > 60, Glucose Level 132H, Calcium Level 8.1L Height (Feet): 5 Height (Inches): 5.00 Weight (Pounds): 260 General Appearance: WD/WN, no apparent distress, alert EENT: PERRL/EOMI, normal ENT inspection Neck: non-tender, normal alignment, supple Cardiovascular: normal peripheral pulses, normal rate, regular rhythm Respiratory/Chest: chest wall non-tender, lungs clear, normal breath sounds, no respiratory distress, no accessory muscle use Abdomen: non tender, soft, no organomegaly, no mass, hypoactive bowel sounds Extremities: normal range of motion, normal capillary refill Edema: no edema noted Arm (L), no edema noted Arm (R), no edema noted Leg (L), no edema noted Leg (R), no edema noted Pedal (L), no edema noted Pedal (R), no edema noted Generalized Fly Weaver MD Sep 25, 2017 08:41
[2017-09-25] MEDS: Pantoprazole Inj IVP SCH (09:10)
[2017-09-25] MEDS: Enoxaparin 40mg Inj SUBQ SCH (09:12)
[2017-09-25 12:00] VITALS: BP 107/69
--- NOTE | 2017-09-25 14:21 | General Surgery Progress Note ---
General Surgery-Progress Note Subjective Procedure Performed attempted Lap Appy , open appendectomy Symptoms: passing flatus Objective Last 24 Hour Vital Signs Date Time Temp Pulse Resp B/P (MAP) Pulse Ox O2 Delivery O2 Flow Rate FiO2 09/25/17 12:00 98.6 79 19 107/69 99 Nasal Cannula 2.0 98.6 09/25/17 08:18 98.4 75 19 102/71 93 Nasal Cannula 2.0 98.4 09/25/17 06:00 98.9 75 19 97/67 99 Nasal Cannula 2.0 98.9 09/25/17 00:00 99.1 66 20 109/68 98 Nasal Cannula 2.0 99.1 09/24/17 20:00 97.4 98 18 116/72 96 Room Air 97.4 09/24/17 16:00 98.4 88 19 97/58 97 Room Air 98.4 09/24/17 15:50 98.4 09/24/17 15:20 97.6 I&O Intake and Output 09/24/17 09/25/17 19:00 07:00 Intake Total 1012.5 ml 1415.0 ml Output Total 800 ml Balance 212.5 ml 1415.0 ml IV Total 1012.5 ml 1415.0 ml Output Urine Total 800 ml # Voids 3 Dressing: dry Drains: none Abdomen: soft, distended, tenderness, present bowel sounds Extremities: no edema, no tenderness Laboratory Tests Test 09/25/17 05:35 White Blood Count 9.7 K/UL (4.8-10.8) Red Blood Count 4.35 M/UL (4.70-6.10) L Hemoglobin 12.0 G/DL (14.2-18.0) L Hematocrit 36.6 % (42.0-52.0) L Mean Corpuscular Volume 84 FL (80-99) Mean Corpuscular Hemoglobin 27.6 PG (27.0-31.0) Mean Corpuscular Hemoglobin Concent 32.7 G/DL (32.0-36.0) Red Cell Distribution Width 12.3 % (11.6-14.8) Platelet Count 134 K/UL (150-450) L Mean Platelet Volume 10.6 FL (6.5-10.1) H Neutrophils (%) (Auto) 82.0 % (45.0-75.0) H Lymphocytes (%) (Auto) 12.0 % (20.0-45.0) L Monocytes (%) (Auto) 4.7 % (1.0-10.0) Eosinophils (%) (Auto) 0.7 % (0.0-3.0) Basophils (%) (Auto) 0.6 % (0.0-2.0) Sodium Level 137 MMOL/L (136-145) Potassium Level 3.9 MMOL/L (3.5-5.1) Chloride Level 104 MMOL/L (98-107) Carbon Dioxide Level 30 MMOL/L (21-32) Anion Gap 3 mmol/L (5-15) L Blood Urea Nitrogen 14 mg/dL (7-18) Creatinine 1.1 MG/DL (0.55-1.30) Estimat Glomerular Filtration Rate > 60 mL/min (>60) Glucose Level 132 MG/DL (74-106) H Calcium Level 8.1 MG/DL (8.5-10.1) L Assessment Post-op Diagnosis perforated appendicitis with peritonitis Plan Additional Comments continue antibiotics Harleen Weston MD Sep 25, 2017 14:21
[2017-09-25] MEDS ORDERED: NS 500ML ONE (15:18)
[2017-09-25] MEDS ORDERED: Tubing IV Secondary IV ONE (15:18)
[2017-09-25 16:00] VITALS: BP 116/77
[2017-09-25] MEDS: traMADol 50mg tab ORAL PRN ×2 (17:00→21:36)
[2017-09-25] MEDS: Docusate Sod/Senna tab ORAL SCH (17:02)
[2017-09-25 20:00] VITALS: BP 115/77
[2017-09-26] VITALS: BP 111/71
[2017-09-26 04:00] VITALS: BP 121/78
[2017-09-26] MEDS: Piperacillin/Tazobactam 3.375 GM in D5W 110 ML IVPB SCH ×3 (04:09→20:35)
[2017-09-26] MEDS: traMADol 50mg tab ORAL PRN ×3 (04:17→18:40)
[2017-09-26] MEDS: Metoclopramide 10mg/2ml Inj IM SCH ×3 (05:28→21:38)
[2017-09-26 08:00] VITALS: BP 107/79
[2017-09-26] MEDS: Docusate Sod/Senna tab ORAL SCH ×2 (08:32→18:00)
[2017-09-26] MEDS: Enoxaparin 40mg Inj SUBQ SCH (08:34)
[2017-09-26 09:45] LABS: BASOPHILS % (AUTO) 1.2 % (0.0-2.0); EOSINOPHILS % (AUTO) 1.4 % (0.0-3.0); HEMATOCRIT 40.4 % (42.0-52.0); HEMOGLOBIN 13.5 G/DL (14.2-18.0); MEAN CORPUSCULAR VOLUME 83 FL (80-99); MONOCYTES % (AUTO) 8.6 % (1.0-10.0); NEUTROPHILS % (AUTO) 74.9 % (45.0-75.0); PLATELET COUNT 159 K/UL (150-450); RED BLOOD COUNT 4.87 M/UL (4.70-6.10); RED CELL DISTRIBUTION WIDTH 11.9 % (11.6-14.8); WHITE BLOOD COUNT 7.7 K/UL (4.8-10.8)
[2017-09-26 09:56] LABS: ANION GAP 7 mmol/L (5-15); BLOOD UREA NITROGEN 15 mg/dL (7-18); CALCIUM 8.4 MG/DL (8.5-10.1); CARBON DIOXIDE 26 MMOL/L (21-32); CHLORIDE 101 MMOL/L (98-107); CREATININE 0.9 MG/DL (0.55-1.30); POTASSIUM 3.1 MMOL/L (3.5-5.1); SODIUM 133 MMOL/L (136-145)
--- NOTE | 2017-09-26 11:36 | Infectious Diseases Prog Note ---
Assessment/Plan Assessment/Plan A) 1) appendicitis with perforation, sepsis, leukocytosis, fevers - clinically improved 2) pmh o/w negative 3) allergies - negative 4) sh - negative, mar noted, fh-nc 5) d/w RN and patient P) 1) zoysn for now, day # 3 abx post-op, will need total one week abx post-op iv plus oral abx 2) monitor labs 3) d/w Dr. Weaver 4) can discharge on oral augmenting and ciprofloxacin upon discharge for remainder abx course 5) d/w patient Subjective Constitutional: Denies: fever HEENT: Denies: congestion Respiratory: Denies: shortness of breath Cardiovascular: Denies: chest pain Gastrointestinal/Abdominal: Denies: nausea, vomiting, diarrhea Genitourinary: Denies: dysuria, hematuria Neurologic: Denies: headache Psychiatric: Denies: depression Skin: Denies: rash Hematologic: Denies: bleeding Musculoskeletal: Reports: pain - abdominal pain controlled Allergies: Coded Allergies: No Known Allergies (Unverified , 05/31/17) Objective Vital Signs Last 24 Hour Vital Signs Date Time Temp Pulse Resp B/P (MAP) Pulse Ox O2 Delivery O2 Flow Rate FiO2 09/26/17 08:00 98.3 74 18 107/79 95 Room Air 98.3 09/26/17 04:00 98.0 69 18 121/78 98 Room Air 98.0 09/26/17 00:00 98.4 67 19 111/71 95 Room Air 98.4 09/25/17 20:00 98.4 85 20 115/77 95 Room Air 98.4 09/25/17 16:00 98.8 79 19 116/77 99 Nasal Cannula 2.0 98.8 09/25/17 12:00 98.6 79 19 107/69 99 Nasal Cannula 2.0 98.6 Height (Feet): 5 Height (Inches): 5.00 Weight (Pounds): 262 General Appearance: no acute distress HEENT: normocephalic, atraumatic, anicteric, mucous membranes moist Respiratory/Chest: lungs clear, normal breath sounds, no respiratory distress, no accessory muscle use Cardiovascular: normal rate, regular rhythm, no gallop/murmur, no JVD Abdomen: normal bowel sounds, soft, non tender, no organomegaly, non distended Genitourinary: other - no dickson Extremities: no cyanosis Skin: no rash, other - incision clean and dry Neurologic/Psychiatric: social worker palliative care II-XII grossly normal, alert, responsive Lymphatic: no neck adenopathy Musculoskeletal: no effusion Objective CT abdomen and pelvis: Appendix: The appendix is abnormally dilated and inflamed measuring up to 1.2 cm diameter. A small focus of extraluminal air is seen adjacent apex consistent with perforated appendicitis. Bladder: Unremarkable. No mass. Reproductive: Unremarkable as visualized. ABDOMEN and PELVIS: Intraperitoneal space: See above. Bones/joints: There are degenerative changes of the thoracic spine and lumbar spine. No acute fracture. No dislocation. Soft tissues: There are small fat-containing bilateral inguinal hernia defects. Vasculature: Unremarkable. No abdominal aortic aneurysm. Lymph nodes: Unremarkable. No enlarged lymph nodes. Other findings: No abscess identified. IMPRESSION: 1. Findings consistent with perforated appendicitis. 2. No abscess. Laboratory Tests Test 09/26/17 09:05 White Blood Count 7.7 K/UL (4.8-10.8) Red Blood Count 4.87 M/UL (4.70-6.10) Hemoglobin 13.5 G/DL (14.2-18.0) L Hematocrit 40.4 % (42.0-52.0) L Mean Corpuscular Volume 83 FL (80-99) Mean Corpuscular Hemoglobin 27.6 PG (27.0-31.0) Mean Corpuscular Hemoglobin Concent 33.3 G/DL (32.0-36.0) Red Cell Distribution Width 11.9 % (11.6-14.8) Platelet Count 159 K/UL (150-450) Mean Platelet Volume 9.8 FL (6.5-10.1) Neutrophils (%) (Auto) 74.9 % (45.0-75.0) Lymphocytes (%) (Auto) 14.0 % (20.0-45.0) L Monocytes (%) (Auto) 8.6 % (1.0-10.0) Eosinophils (%) (Auto) 1.4 % (0.0-3.0) Basophils (%) (Auto) 1.2 % (0.0-2.0) Sodium Level 133 MMOL/L (136-145) L Potassium Level 3.1 MMOL/L (3.5-5.1) L Chloride Level 101 MMOL/L (98-107) Carbon Dioxide Level 26 MMOL/L (21-32) Anion Gap 7 mmol/L (5-15) Blood Urea Nitrogen 15 mg/dL (7-18) Creatinine 0.9 MG/DL (0.55-1.30) Estimat Glomerular Filtration Rate > 60 mL/min (>60) Glucose Level 121 MG/DL (74-106) H Calcium Level 8.4 MG/DL (8.5-10.1) L Current Medications Medications (Trade) Dose Ordered Sig/Fabiano Route PRN Reason Start Time Stop Time Status Last Admin Dose Admin Acetaminophen (Tylenol) 650 mg Q4H PRN ORAL Mild Pain/Temp > 100.5 09/25/17 14:30 10/25/17 14:29 Enoxaparin Sodium (Lovenox) 40 mg DAILY SUBQ 09/24/17 09:00 10/24/17 08:59 09/26/17 08:34 Metoclopramide HCl (Reglan) 10 mg EVERY 8 HOURS IM 09/23/17 22:00 10/23/17 21:59 09/24/17 06:31 Ondansetron HCl (Zofran) 4 mg Q6H PRN IVP Nausea & Vomiting 09/23/17 02:30 10/23/17 02:29 Pantoprazole (Protonix) 40 mg DAILY ORAL 09/26/17 09:00 10/26/17 08:59 09/26/17 08:32 Piperacillin Sod/ Tazobactam Sod 3.375 gm/Dextrose 110 ml @ 27.5 mls/hr Q8H IVPB 09/24/17 12:00 10/01/17 11:59 09/26/17 04:09 Potassium Chloride (K-Dur) 40 meq ONCE ONCE ORAL 09/26/17 12:00 09/26/17 12:01 Senna/Docusate Sodium (Ivonne-Colace) 1 tab TWICE A DAY ORAL 09/25/17 18:00 10/25/17 17:59 09/26/17 08:32 Tramadol HCl (Ultram) 50 mg Q4H PRN ORAL pain 4-10 09/25/17 14:30 10/02/17 14:29 09/26/17 04:17 Con Ding MD Sep 26, 2017 11:36
--- NOTE | 2017-09-26 11:52 | General Progress Note ---
Assessment/Plan Problem List: (1) Appendicitis with perforation Assessment & Plan: S/P lap turned open appy 09/23 ICD Codes: K35.2 - Acute appendicitis with generalized peritonitis SNOMED: 85480940 (2) Obesity ICD Codes: E66.9 - Obesity, unspecified SNOMED: 422198396, [id number] Status: doing well Assessment/Plan -Post op care -Pain control/supportive care -FLD advance diet per surgery -Monitor for recovery of bowel function -IS -Zosyn per ID, FU Cx's -> Will D/C on a few additional days of PI Abx -Kcl repleted by surgery -DVT Px: LMWH -Weight loss, diet and exercise discussed -Should have an an outpatient sleep study Subjective Allergies: Coded Allergies: No Known Allergies (Unverified , 05/31/17) Subjective POD 3 S/P lap turned open skylar AFVSS, stable on RA Pain well controlled, no N no V, + flatus, no BM, no F/C Jerri FLD Not using IS Objective Last 24 Hour Vital Signs Date Time Temp Pulse Resp B/P (MAP) Pulse Ox O2 Delivery O2 Flow Rate FiO2 09/26/17 08:00 98.3 74 18 107/79 95 Room Air 98.3 09/26/17 04:00 98.0 69 18 121/78 98 Room Air 98.0 09/26/17 00:00 98.4 67 19 111/71 95 Room Air 98.4 09/25/17 20:00 98.4 85 20 115/77 95 Room Air 98.4 09/25/17 16:00 98.8 79 19 116/77 99 Nasal Cannula 2.0 98.8 09/25/17 12:00 98.6 79 19 107/69 99 Nasal Cannula 2.0 98.6 Intake and Output 09/25/17 09/26/17 19:00 07:00 Intake Total 1500 ml 765.0 ml Balance 1500 ml 765.0 ml Intake Oral 1500 ml 600 ml IV Total 165.0 ml # Voids 3 3 # Bowel Movements 1 Laboratory Tests 09/26/17 09:05: White Blood Count 7.7, Red Blood Count 4.87, Hemoglobin 13.5L, Hematocrit 40.4L , Mean Corpuscular Volume 83, Mean Corpuscular Hemoglobin 27.6, Mean Corpuscular Hemoglobin Concent 33.3, Red Cell Distribution Width 11.9, Platelet Count 159, Mean Platelet Volume 9.8, Neutrophils (%) (Auto) 74.9, Lymphocytes (% ) (Auto) 14.0L, Monocytes (%) (Auto) 8.6, Eosinophils (%) (Auto) 1.4, Basophils (%) (Auto) 1.2, Sodium Level 133L, Potassium Level 3.1L, Chloride Level 101, Carbon Dioxide Level 26, Anion Gap 7, Blood Urea Nitrogen 15, Creatinine 0.9, Estimat Glomerular Filtration Rate > 60, Glucose Level 121H, Calcium Level 8.4L Height (Feet): 5 Height (Inches): 5.00 Weight (Pounds): 262 General Appearance: WD/WN, no apparent distress, alert EENT: PERRL/EOMI, normal ENT inspection Neck: non-tender, normal alignment, supple Cardiovascular: normal peripheral pulses, normal rate, regular rhythm Respiratory/Chest: chest wall non-tender, lungs clear, normal breath sounds, no respiratory distress, no accessory muscle use Abdomen: normal bowel sounds, non tender, soft, no organomegaly Edema: no edema noted Arm (L), no edema noted Arm (R), no edema noted Leg (L), no edema noted Leg (R), no edema noted Pedal (L), no edema noted Pedal (R), no edema noted Generalized Fly Weaver MD Sep 26, 2017 11:52
[2017-09-26 12:00] VITALS: BP 105/79
--- NOTE | 2017-09-26 13:05 | General Surgery Progress Note ---
General Surgery-Progress Note Subjective Procedure Performed attempted Lap Appy , open appendectomy Symptoms: improved, BM Objective Last 24 Hour Vital Signs Date Time Temp Pulse Resp B/P (MAP) Pulse Ox O2 Delivery O2 Flow Rate FiO2 09/26/17 08:00 98.3 74 18 107/79 95 Room Air 98.3 09/26/17 04:00 98.0 69 18 121/78 98 Room Air 98.0 09/26/17 00:00 98.4 67 19 111/71 95 Room Air 98.4 09/25/17 20:00 98.4 85 20 115/77 95 Room Air 98.4 09/25/17 16:00 98.8 79 19 116/77 99 Nasal Cannula 2.0 98.8 I&O Intake and Output 09/25/17 09/26/17 19:00 07:00 Intake Total 1500 ml 765.0 ml Balance 1500 ml 765.0 ml Intake Oral 1500 ml 600 ml IV Total 165.0 ml # Voids 3 3 # Bowel Movements 1 Dressing: dry Wound: clean Drains: none Respiratory: clear Abdomen: soft, non-tender, present bowel sounds Extremities: no tenderness Laboratory Tests Test 09/26/17 09:05 White Blood Count 7.7 K/UL (4.8-10.8) Red Blood Count 4.87 M/UL (4.70-6.10) Hemoglobin 13.5 G/DL (14.2-18.0) L Hematocrit 40.4 % (42.0-52.0) L Mean Corpuscular Volume 83 FL (80-99) Mean Corpuscular Hemoglobin 27.6 PG (27.0-31.0) Mean Corpuscular Hemoglobin Concent 33.3 G/DL (32.0-36.0) Red Cell Distribution Width 11.9 % (11.6-14.8) Platelet Count 159 K/UL (150-450) Mean Platelet Volume 9.8 FL (6.5-10.1) Neutrophils (%) (Auto) 74.9 % (45.0-75.0) Lymphocytes (%) (Auto) 14.0 % (20.0-45.0) L Monocytes (%) (Auto) 8.6 % (1.0-10.0) Eosinophils (%) (Auto) 1.4 % (0.0-3.0) Basophils (%) (Auto) 1.2 % (0.0-2.0) Sodium Level 133 MMOL/L (136-145) L Potassium Level 3.1 MMOL/L (3.5-5.1) L Chloride Level 101 MMOL/L (98-107) Carbon Dioxide Level 26 MMOL/L (21-32) Anion Gap 7 mmol/L (5-15) Blood Urea Nitrogen 15 mg/dL (7-18) Creatinine 0.9 MG/DL (0.55-1.30) Estimat Glomerular Filtration Rate > 60 mL/min (>60) Glucose Level 121 MG/DL (74-106) H Calcium Level 8.4 MG/DL (8.5-10.1) L Assessment Post-op Diagnosis perforated appendicitis with peritonitis Plan Additional Comments continue antibiotics Harleen Weston MD Sep 26, 2017 13:05
[2017-09-26 16:37] VITALS: BP 118/74
[2017-09-26 20:00] VITALS: BP 133/65
[2017-09-27] VITALS: BP 111/67
[2017-09-27] MEDS: traMADol 50mg tab ORAL PRN ×2 (00:03→11:04)
[2017-09-27] MEDS: Piperacillin/Tazobactam 3.375 GM in D5W 110 ML IVPB SCH ×2 (03:25→12:35)
[2017-09-27 04:00] VITALS: BP 114/67
[2017-09-27] MEDS: Metoclopramide 10mg/2ml Inj IM SCH ×2 (05:28→14:00)
[2017-09-27 06:36] LABS: BASOPHILS % (AUTO) 1.3 % (0.0-2.0); EOSINOPHILS % (AUTO) 1.6 % (0.0-3.0); HEMATOCRIT 36.8 % (42.0-52.0); HEMOGLOBIN 12.5 G/DL (14.2-18.0); LYMPHOCYTES % (AUTO) 12.2 % (20.0-45.0); MEAN CORPUSCULAR VOLUME 83 FL (80-99); MONOCYTES % (AUTO) 11.5 % (1.0-10.0); NEUTROPHILS % (AUTO) 73.4 % (45.0-75.0); PLATELET COUNT 145 K/UL (150-450); RED BLOOD COUNT 4.43 M/UL (4.70-6.10)
[2017-09-27 06:52] LABS: ANION GAP 4 mmol/L (5-15); BLOOD UREA NITROGEN 11 mg/dL (7-18); CALCIUM 8.3 MG/DL (8.5-10.1); CARBON DIOXIDE 28 MMOL/L (21-32); CHLORIDE 101 MMOL/L (98-107); CREATININE 0.9 MG/DL (0.55-1.30); POTASSIUM 3.9 MMOL/L (3.5-5.1); SODIUM 133 MMOL/L (136-145)
[2017-09-27 08:00] VITALS: BP 103/62
[2017-09-27] MEDS: Docusate Sod/Senna tab ORAL SCH ×2 (08:57→09:00)
[2017-09-27] MEDS: Enoxaparin 40mg Inj SUBQ SCH (08:58)
--- NOTE | 2017-09-27 09:31 | General Progress Note ---
Assessment/Plan Problem List: (1) Appendicitis with perforation Assessment & Plan: S/P lap turned open appy 09/23 ICD Codes: K35.2 - Acute appendicitis with generalized peritonitis SNOMED: 85794925 (2) Obesity ICD Codes: E66.9 - Obesity, unspecified SNOMED: 431166913, [id number] Assessment/Plan -Post op care -Pain control/supportive care -Regular diet per surgery -Monitor for recovery of bowel function -IS -Zosyn per ID, will D/C on 5 additional days of CIPRO and AUGMENTIN -DVT Px: LMWH -Weight loss, diet and exercise discussed -F/U WITH DR. DIAZ as directed -Should have an an outpatient sleep study -NEEDS TO F/U WITH PMD POST-DISCHARGE Subjective Allergies: Coded Allergies: No Known Allergies (Unverified , 05/31/17) Subjective POD4 S/P lap turned open skylar AFVSS, stable on RA Pain well controlled, no N no V, + flatus, + BM, no F/C Jerri regular diet Not using IS Objective Last 24 Hour Vital Signs Date Time Temp Pulse Resp B/P (MAP) Pulse Ox O2 Delivery O2 Flow Rate FiO2 09/27/17 08:00 97.7 57 20 103/62 99 97.7 09/27/17 04:00 97.1 74 19 114/67 93 97.1 09/27/17 00:00 99.3 73 18 111/67 97 99.3 09/26/17 20:00 99.6 82 20 133/65 94 99.6 09/26/17 16:37 98.6 71 20 118/74 98 Room Air 98.6 09/26/17 12:00 98.0 83 18 105/79 98 Room Air 98.0 Intake and Output 09/26/17 09/27/17 19:00 07:00 Intake Total 645.0 ml 192.5 ml Balance 645.0 ml 192.5 ml Intake Oral 480 ml IV Total 165.0 ml 192.5 ml # Voids 1 3 # Bowel Movements 1 Laboratory Tests 09/27/17 05:45: White Blood Count 7.0, Red Blood Count 4.43L, Hemoglobin 12.5L, Hematocrit 36.8L , Mean Corpuscular Volume 83, Mean Corpuscular Hemoglobin 28.3, Mean Corpuscular Hemoglobin Concent 34.1, Red Cell Distribution Width 12.0, Platelet Count 145L, Mean Platelet Volume 8.4, Neutrophils (%) (Auto) 73.4, Lymphocytes ( %) (Auto) 12.2L, Monocytes (%) (Auto) 11.5H, Eosinophils (%) (Auto) 1.6, Basophils (%) (Auto) 1.3, Sodium Level 133L, Potassium Level 3.9, Chloride Level 101, Carbon Dioxide Level 28, Anion Gap 4L, Blood Urea Nitrogen 11, Creatinine 0.9, Estimat Glomerular Filtration Rate > 60, Glucose Level 113H, Calcium Level 8.3L Height (Feet): 5 Height (Inches): 5.00 Weight (Pounds): 262 General Appearance: WD/WN, no apparent distress, alert, lethargic EENT: PERRL/EOMI, normal ENT inspection Neck: non-tender, normal alignment, supple, normal inspection Cardiovascular: normal peripheral pulses, normal rate, regular rhythm Respiratory/Chest: chest wall non-tender, lungs clear, normal breath sounds, no respiratory distress Abdomen: normal bowel sounds, non tender, soft, no organomegaly, no mass Edema: no edema noted Arm (L), no edema noted Arm (R), no edema noted Leg (L), no edema noted Leg (R), no edema noted Pedal (L), no edema noted Pedal (R), no edema noted Generalized Fly Weaver MD Sep 27, 2017 09:31
[2017-09-27 12:00] VITALS: BP 118/85
[2017-09-27] MEDS ORDERED: CIPRO500 MG/51 PO (12:11)
[2017-09-27] MEDS ORDERED: AUGMENTIN 875-1 EAC1 ORAL (12:11)
[2017-09-27] MEDS ORDERED: Tubing IV Secondary IV ONE (13:59)
--- NOTE | 2017-09-28 07:50 | Discharge Summary ---
Discharge Summary Discharge Summary _ DATE OF ADMISSION: 09/23/2017 DATE OF DISCHARGE: 09/27/2017 REASON FOR ADMISSION: 51 years old obese male without any significant past medical history, presented to emergency department with acute right lower quadrant abdominal pain for one day. He denied nausea and vomiting. He denied fever and chills. No headache or dizziness. He was not able to eat secondary to food aversion. No diarrhea or constipation. Patient was afebrile. Laboratory workup revealed leukocytosis, WBC 13.1. CT of the abdomen and pelvis revealed acute perforated appendicitis. Patient was admitted with diagnosis of acute perforated appendicitis for surgical intervention. CONSULTANTS: ID specialist Dr. Ding surgery [facility] COURSE: Patient admitted for surgery. 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 s/p 09/23 attempted laparoscopic cholecystectomy, open appendectomy. postoperatively IV fluids. empiric antibiotic started as per ID specialist recommendations , who closely followed. patient kept nothing by mouth until bowel function returned. incentive spirometry was encouraged and taught how to use. pain management was addressed, pain was controlled. leukocytosis resolved. DVT prophylaxis provided. when bowel function returned, started on diet and advanced as tolerated. patient was able to tolerate diet voided freely noted hyperglycemia. Hemoglobin A1c 6.2., which qualifies him for prediabetes. Patient was advised to follow up with primary care provider for further management. patient was advised on weight loss measures patient was recommended outpatient sleep study. patient was stable for discharge home on antibiotics to complete total one week of antibiotic as per ID specialist recommendation. prescription provided. postop discharge instruction provided. FINAL DIAGNOSES: Acute perforated appendicitis with peritonitis Sepsis ( secondary to above) s/p 09/23 attempted laparoscopic appendectomy, open appendectomy Obesity Likely obstructive sleep apnea Hyperglycemia due to prediabetes DISCHARGE MEDICATIONS: See Medication Reconciliation list. DISCHARGE INSTRUCTIONS: Patient was discharged home. Follow up with surgeon as advised. Outpatient sleep study recommended. Follow up with the primary care provider in one week Patient was advised on weight loss, diet and exercise. I have been assigned to dictate discharge summary for this account. I was not involved in the patient's management. Ara Carrasco NP Sep 28, 2017 07:50
--- NOTE | 2017-09-28 09:40 | 48 Hour Post Anesthesia Eval ---
Post Anesthesia Evaluation Procedure: appendectomy open Date of Evaluation: Sep 24, 2017 Time of Evaluation: 12:00 Nausea: No Vomiting: No Harika Madrigal MD Sep 28, 2017 09:40
== END 2017-09-27 14:00 | disposition home or self-care (01) | DRG 853 ==
LOC: EMR 20:57 → EDBEDREQ 09-23 01:00 → 4E 09-23 01:23 → EDBEDREQ 09-23 01:39 → 3E 09-25 08:23
PROC: 0DTJ0ZZ Resection of Appendix, Open Approach (ICD-10-PCS; principal; 2017-09-23 09:30)
PROC: 0DJD4ZZ Inspection of Lower Intestinal Tract, Percutaneous Endoscopic Approach (ICD-10-PCS; principal; 2017-09-23 09:30)
DX: A41.9 Sepsis, unspecified organism (principal); K35.2 Acute appendicitis with generalized peritonitis; Z68.41 Body mass index [BMI] 40.0-44.9, adult; E66.9 Obesity, unspecified; G47.30 Sleep apnea, unspecified; R73.03 Prediabetes
CPT/HCPCS: 36415; 74177; 80048; 80053; 80170; 81003; 82248; 83036; 83690; 85007; 85025; 85610; 85730; 86850; 86900; 86901; 94003; 94150; 99285; C9399; J2405; J2710; J2765; J8499